=== PATIENT | female | born 1990 | race Caucasian/White ===

== ENCOUNTER 2024-05-07 17:39 | Emergency (ER) | payer MEDICAID, SELFPAY ==
--- NOTE | 2024-05-07 18:05 | XR_ITS ---
Examination: PA chest single view Technique: Upright PA chest single view Exam date and time: May 07, 2024 1832 hrs. Comparison May 16, 2021 Indications: Coughing shortness of breath beginning 4 days ago. Findings: Normal heart size No lobar pneumonia or pulmonary edema The osseous structures are intact Impression: No lobar pneumonia or pulmonary edema
[2024-05-07 18:46] VITALS: BP 116/75; PULSE 90; RESP 16; TEMP 37.3; O2SAT 98; BMI 32.9
--- NOTE | 2024-05-07 18:50 | PD.EDRME ---
Rapid Medical Screening Exam E Arrival date/time: 05/07/24 17:39 Chief Complaint: Shortness of Breath/Dyspnea Time Seen by Provider: 05/07/24 18:48 Vital signs: Vital Signs Temperature 99.2 F 05/07/24 18:46 Pulse Rate 90 05/07/24 18:46 Respiratory Rate 16 05/07/24 18:46 Blood Pressure 116/75 05/07/24 18:46 Pulse Oximetry (%) 98 05/07/24 18:46 Oxygen Delivery Method Room Air 05/07/24 18:46 RME Narrative: 33-year-old female with cough. Smoker. No CP.
--- NOTE | 2024-05-07 19:24 | PC.NURSE ---
NO ANSWER X3 FOR CALL BACK TO MAIN ED
== END 2024-05-07 19:20 | disposition left against medical advice (07) ==
LOC: SERX 19:43
PROVIDERS: Emergency Provider Emergency Medicine
DX: R05.9 Cough, unspecified (principal); F17.200 Nicotine dependence, unspecified, uncomplicated; Z53.29 Procedure and treatment not carried out because of patient's decision for other reasons
CPT/HCPCS: 71045; 81025; 94644; 99281; A9270

== ENCOUNTER 2024-08-27 10:43 | Observation (INO) | payer MEDICAID, SELFPAY ==
[2024-08-27] VITALS (7 sets, daily range): BP systolic 98–118; BP diastolic 51–79; PULSE 77–113; RESP 16–18; TEMP 36.4–38.2; O2SAT 93–100; BMI 19.5; BMI 20.2; BMI 30.1
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
--- NOTE | 2024-08-27 11:28 | XR_ITS ---
Examination: CT abdomen and pelvis without contrast. Coronal 3-D reconstructions. Sagittal 2-D reconstructions. Date and time of exam:August 27, 2024 at 1642 hours INDICATIONS: Bilateral back pain and flank pain fever today CTDI: vol (mGy): 10.7 DLP: (mGycm): 629 Technique: Axial images of the abdomen have been obtained, 3 mm slice thickness Intravenous contrast material has not been administered. Low dose protocols were performed. One or more of the following dose reduction techniques were used; automated exposure control, adjustment of the mA and/or KV according to patient size, use of iterative reconstruction technique. Findings: Fatty infiltration throughout the liver no focal liver or splenic lesions No gallstones No pancreatic mass Dilated calyx versus cyst in the upper pole right kidney 20 mm Right perinephric stranding No renal or ureteral calculi The right kidney appears edematous Aorta normal size No bowel obstruction Normal appendix Anteverted uterus 3.5 cm right adnexal hypodense mass Urinary bladder wall thickening IMPRESSION: Right pyelonephritis Cystitis Normal appendix Recommend pelvic sonography to confirm 35 mm right adnexal cyst
--- NOTE | 2024-08-27 11:34 | XR_ITS ---
Examination: AP chest single view TECHNIQUE: AP portable upright chest single view Examination type: August 28, 2019 5006 hours INDICATION: Fever and headaches beginning 3 days ago. FINDINGS: Normal heart size. Lungs are clear. The osseous structures are intact IMPRESSION: No active disease
--- NOTE | 2024-08-27 11:34 | XR_ITS ---
Examination: CT brain head without contrast. 2-D sagittal coronal reconstructions Date and time of exam:August 27, 2024 1620 hours INDICATIONS: Headaches beginning 4 days ago CTDI: vol (mGy):50.7 DLP: (mGycm):1021 Technique: Multiple CT axial sections of the brain have been obtained, 5 mm slice thickness. Contrast has not been administered. 2-D sagittal, coronal reconstructions have been obtained Low dose protocols were performed. One or more of the following dose reduction techniques were used; automated exposure control, adjustment of the mA and/or KV according to patient size, use of iterative reconstruction technique. Findings: No significant ventricular enlargement. Intra-axial or extra-axial hemorrhage density is not seen. No mass effect or midline shift Basal cisterns are not remarkable. Fourth ventricle is midline. Cranial vault intact. Impression: Negative for acute hemorrhage, mass effect or midline shift
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
[2024-08-27 11:45] LABS: Basophils # (Auto) 0.1 Thou/mm3 (0.0-0.2); Basophils % (Auto) 0 % (0-2.5); Eosinophils % (Auto) 0 % (0-10); Hematocrit 35.5 % (36.0-46.0); Hemoglobin 11.3 g/dL (12.0-16.0); Immature Granulocytes % (Auto) 1 % (0-0); Immature Granulocytes Auto 0.11 Thou/mm3 (0.00-0.00); Lymphocytes # (Auto) 0.9 Thou/mm3 (1.0-4.8); Lymphocytes % (Auto) 5 % (10-50); Mean Corpuscular HGB Conc 31.8 g/dl (31.0-37.0); Mean Corpuscular Hemoglobin 25.3 pg (25.0-35.0); Mean Corpuscular Volume 80 fL (80-100); Monocytes # (Auto) 2.8 Thou/mm3 (0.0-0.8); Monocytes % (Auto) 14 % (0-12); Neutrophils # (Auto) 16.9 Thou/mm3 (1.8-7.7); Neutrophils % (Auto) 81 % (37-80); Nucleated Red Blood Cell % 0 /100 WBC (0); Platelet Count 268 Thou/mm3 (140-440); Red Blood Count 4.46 Miln/mm3 (4.00-5.20); White Blood Count 20.9 Thou/mm3 (3.6-11.0)
--- NOTE | 2024-08-27 12:06 | PC.NURSE ---
X-RAY AT BEDSIDE FOR PORTABLE X-RAY
[2024-08-27] MEDS: ACETAMINOPHEN 500 MG TABLET 1000 MG PO (12:09)
[2024-08-27 12:11] LABS: Alanine Aminotransferase 20 U/L (10-49); Albumin, Serum 4.3 gm/dL (3.5-5.0); Albumin/Globulin Ratio 1.5 (1.2-2.2); Alkaline Phosphatase 78 U/L (46-116); Anion Gap 8 (7-16); Aspartate Amino Transferase 17 U/L (0-34); BUN/Creatinine Ratio 11 Ratio (12-20); Bilirubin,Total 0.5 mg/dL (0.3-1.2); Blood Urea Nitrogen 10 mg/dL (9-23); Calcium 10.2 mg/dL (8.3-10.6); Calcium (Corrected) 10.2 mg/dL (8.5-10.1); Carbon Dioxide 22.4 mMol/L (20.0-31.0); Chloride 105 mMol/L (98-107); Creatinine (Component) 0.9 mg/dL (0.6-1.3); Estimated Creatinine Clearance 92.3 mL/min (>60); Globulin 2.9 gm/dL (2.3-3.5); Glucose 103 mg/dL (74-106); Lipase 23 U/L (12-53); Osmolality,Calculated 269 (275-295); Potassium 3.8 mMol/L (3.4-5.1); Sodium 135 mMol/L (136-145); Total Protein 7.2 gm/dL (5.7-8.2); eGFR > 60 See Note
[2024-08-27] MEDS: RINGERS LACTATED 1000 ML 1,000 ML 999 ML IV (12:11)
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
[2024-08-27 15:26] LABS: Collection Type, Urine Clean Catch; RBC,Urine 0 /hpf (0-3)
[2024-08-27 15:50] LABS: Beta HCG,Quantitative < 1 mIU/mL (<5.0)
[2024-08-27 16:01] LABS: HCG Qualitative,Urine Negative
[2024-08-27 16:02] LABS: Bacteria,Urine Rare; Bilirubin,Urine Negative (Negative); Blood,Urine Negative (Negative); Clarity,Urine Clear (Clear/Hazy); Color,Urine Colorless (Lt Yel-Yel); Culture Indicated,Urine Not Indicated; Glucose, Urine Negative (Negative); Ketones,Urine Trace (Negative); Leukocyte Esterase,Urine Negative (Negative); Nitrite,Urine Negative (Negative); Protein,Urine Negative (Neg - Trace); Specific Gravity,Urine 1.006 (1.001-1.035); Squamous Epithelial Cell,Urine 1 /hpf (0-5); Urobilinogen,Urine Negative mg/dL (0.0-1.0); WBC,Urine 2 /hpf (0-5)
[2024-08-27 17:42] LABS: Amphetamine/Methamp Scrn,U Positive (Negative); Barbiturate Screen,Urine Negative (Negative); Benzodiazepines Screen,Urine Negative (Negative); Benzoylecgonine Screen, Ur Negative (Negative); Fentanyl Screen,Urine Negative (Negative); Opiate Screen,Urine Negative (Negative); THC Screen,Urine Negative (Negative)
[2024-08-27] MEDS: KETOROLAC INJ 30 MG/ML VIAL IVP (18:15)
[2024-08-27] MEDS: cefTRIAXone/D5w 1gm IV premix 1 GM/50 ML BAG IV (18:16)
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
[2024-08-27] MEDS: SODIUM CHLORIDE 0.9% 1000 ML 1,000 ML 75 ML IV (19:07)
[2024-08-27] MEDS: ONDANSETRON INJ 2 MG/ML INJ 2 ML 4 MG IV (21:38)
[2024-08-27] MEDS: ACETAMINOPHEN 325 MG TABLET 650 MG PO (21:39)
[2024-08-28] VITALS: BP 99/53; PULSE 68; RESP 18; TEMP 36.2; O2SAT 99
[2024-08-28 04:00] VITALS: BP 109/60; PULSE 80; RESP 18; TEMP 37.1; O2SAT 99
[2024-08-28] MEDS: KETOROLAC INJ 30 MG/ML VIAL 15 MG IVP (04:49)
[2024-08-28 06:15] LABS: Basophils % (Auto) 0 % (0-2.5); Eosinophils # (Auto) 0.2 Thou/mm3 (0.0-0.5); Eosinophils % (Auto) 2 % (0-10); Hematocrit 30.9 % (36.0-46.0); Hemoglobin 9.9 g/dL (12.0-16.0); Immature Granulocytes % (Auto) 0 % (0-0); Immature Granulocytes Auto 0.04 Thou/mm3 (0.00-0.00); Lymphocytes # (Auto) 1.4 Thou/mm3 (1.0-4.8); Lymphocytes % (Auto) 11 % (10-50); Mean Corpuscular Hemoglobin 25.3 pg (25.0-35.0); Mean Corpuscular Volume 79 fL (80-100); Monocytes # (Auto) 1.9 Thou/mm3 (0.0-0.8); Monocytes % (Auto) 14 % (0-12); Neutrophils # (Auto) 9.7 Thou/mm3 (1.8-7.7); Neutrophils % (Auto) 73 % (37-80); Nucleated Red Blood Cell % 0 /100 WBC (0); Platelet Count 248 Thou/mm3 (140-440); RDW Standard Deviation 47.8 fL (36.4-46.3); Red Blood Count 3.91 Miln/mm3 (4.00-5.20); White Blood Count 13.2 Thou/mm3 (3.6-11.0)
[2024-08-28 06:22] LABS: Anion Gap 7 (7-16); BUN/Creatinine Ratio 15 Ratio (12-20); Blood Urea Nitrogen 9 mg/dL (9-23); Calcium 9.7 mg/dL (8.3-10.6); Carbon Dioxide 23.8 mMol/L (20.0-31.0); Cardiac Risk Estimate 2.7 RATIO (3.7-5.6); Chloride 107 mMol/L (98-107); Cholesterol 133 mg/dL (132-200); Creatinine (Component) 0.6 mg/dL (0.6-1.3); Estimated Creatinine Clearance 171.9 mL/min (>60); Glucose 98 mg/dL (74-106); HDL Cholesterol 50 mg/dL (40-60); LDL Cholesterol,Calculated 67 mg/dL (0-130); Osmolality,Calculated 274 (275-295); Potassium 3.7 mMol/L (3.4-5.1); Sodium 138 mMol/L (136-145); Thyroid Stimulating Hormone 1.33 uIU/mL (0.55-4.78); Triglycerides 79 mg/dL (30-150); eGFR > 60 See Note
--- NOTE | 2024-08-28 07:21 | PC.NURSE ---
Nurse was made aware regarding order for patient to have no visitor. Patient stated that she wants to have visitors and if she cannot have any visitors then she will rip out her IV and leave. night shift supervisor nurse notified day shift nurse regarding wanting to have visitors.
--- NOTE | 2024-08-28 07:41 | PC.NURSE ---
MD made aware of patient's statements of wanting to leave AMA, and threats to remove IV by herself. MD assessed patient and AMA paperwork signed.
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
--- NOTE | 2024-08-29 20:51 | PC.NURSE ---
Late entry: at shift change, report was being given at patient's bedside. Night nurse asked patient if she wanted any visitors to which the patient responded calmly yes. When the order was mentioned for no visitors, patient because aggressive verbally and was stated by patient that if she cannot have any visitors then she will rip her IV out and just leave. Charge nurse was made aware of situation.
== END 2024-08-28 08:15 | disposition home or self-care (01) ==
LOC: SERX 17:48 → SERHOLD 18:35 → S3SX 19:38
PROVIDERS: Nurse Practitioner Family; Admitting Provider Internal Medicine; Emergency Provider Emergency Medicine; Visit Provider Internal Medicine
DX: N10 Acute pyelonephritis (principal); R52 Pain, unspecified; F17.210 Nicotine dependence, cigarettes, uncomplicated; I11.0 Hypertensive heart disease with heart failure; F15.10 Other stimulant abuse, uncomplicated; I25.2 Old myocardial infarction
CPT/HCPCS: 36415; 70450; 71045; 74176; 80048; 80053; 80061; 80307; 81001; 81025; 83690; 84443; 84702; 85025; 87040; 87086; 87811; 96361; 96365; 96375; 99285; G0378; J0696; J1885; J2405; J7030; J7120; A9270